=== PATIENT | male | born 1960 | race Caucasian/White ===

== ENCOUNTER 2025-07-07 14:56 | Emergency (ER) | payer OTHER ==
[~2025-07-07] VITALS: Ht 182.9 cm; Wt 110.0 kg
[2025-07-07 15:24] LABS: BASOPHILS 1.1 % (0.2-1.2); EOSINOPHILS 2.1 % (0.8-7.0); LYMPHOCYTES 20.6 % (21.8-53.1); MCH 28.9 PG (25.7-32.2); MCHC 32.3 g/dL (32.3-36.5); MCV 89.4 fL (79.0-92.2); MONOCYTES 9.5 % (5.3-12.2); NEUTROPHILS 65.3 % (34.0-67.9); RBC 5.30 M/uL (4.63-6.08)
[2025-07-07 15:33] LABS: INR 0.99 (0.80-1.30); PROTIME 12.4 Sec (11.2-14.2)
[2025-07-07 15:46] LABS: ALT (SGPT) 94.0 U/L (14-59); AST (SGOT) 108.0 U/L (15-37); GLOMERULAR FILTRATION RATE,EST 77.0 mL/min (>60); PROTEIN, TOTAL 7.1 g/dL (6.4-8.2); UREA NITROGEN 29.0 mg/dL (7-18)
[2025-07-07 16:23] VITALS: BP 166/79
--- NOTE | 2025-07-08 19:50 | EKG ---
[facility] [address] [facility] [place], [place] [address] Signed Normal sinus rhythm Normal ECG No previous ECGs available Confirmed by Margaux Lobo DO ([id number]) on 07/08/2025 7:50:48 PM Electronically Signed By: MARGAUX LOBO DO 07/08/25 1950 PATIENT NAME: JOELLE RODRIGUEZ Electrocardiogram DATE OF : 60 PHYSICIAN: MARGAUX LOBO DO REPORT #: [id number] REPORT IS CONFIDENTIAL AND NOT TO BE RELEASED WITHOUT AUTHORIZATION
== END 2025-07-07 16:24 | disposition home or self-care (01) ==
LOC: ED 14:56
PROVIDERS: Emergency Medicine
DX: R55 Syncope and collapse (principal)
CPT/HCPCS: 36415; 71045; 80053; 83880; 84484; 85025; 85610; 93005; 93010; 99284-25